=== PATIENT | female | born 1970 | race Caucasian/White ===

== ENCOUNTER 2024-03-02 08:15 | Outpatient (REF) | payer OTHER, SELFPAY | END 2024-03-02 08:16 | disposition home or self-care (01) | LOC: HO.SH 08:15 | PROVIDERS: PCP Internal Medicine; Visit Provider Internal Medicine | DX: H93.293 Other abnormal auditory perceptions, bilateral (principal) | CPT/HCPCS: 92557 ==

== ENCOUNTER 2025-07-29 08:05 | Outpatient (AMB) | payer OTHER, SELFPAY ==
--- NOTE | 2025-07-29 08:08 | A.OFFVIS_ITS ---
Intake Visit Reasons: 1 yr Allergies ibuprofen (From MOTRIN) Allergy (Unknown, Unverified 08/07/20 18:52) STOMACH UPSET sensitive to Motrin Adverse Reaction (Unknown, Uncoded 05/30/18 00:00) nausea and vomiting Medication List - Last Reconciled 07/29/25 by Sheeba Dunn MD azelastine 0.05% 1 drp ophthalmic (eye) BID cholecalciferol (vitamin D3) 50 mcg PO DAILY clonazepam (Klonopin) 1 mg PO BID PRN duloxetine (Cymbalta) 60 mg PO BID eszopiclone (Lunesta) 2 mg PO BEDTIME fezolinetant 45 mg PO DAILY gabapentin 300 mg PO TID omeprazole 40 mg PO DAILY sumatriptan succinate (Imitrex) 100 mg orally once a day as needed; 30 days triamcinolone acetonide 0.1% 1 appl topical DAILY HPI Comments Details: 54 years old woman with obesity, urinary incontinence, chronic migraine, anxiety disorder and 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 She is presenting with chronic headache and medication management concerns. Her headaches occur weekly, usually lasting from one day to the next, affecting her head and eyes. She experiences insomnia and depression. The patient has been taking clonazepam, duloxetine, and vitamin D, and has recently stopped using Ambien. She describes a mood affected by life events, including the loss of her mother and absence of a partner. Review of Systems Const Details: - Head: Reports weekly headaches with duration extending from one day to the next. - Eyes: Reports pain associated with headaches. - Insomnia: Reports issues with sleep, mentioning no longer using Ambien. - Mood: Reports feeling down, especially in the context of menopause, and significant life events. - Musculoskeletal: Reports back pain. - Social: Reports significant figures as children; denied having a partner for the last ten years. Physical Exam Neuro Other: Mental Status: Alert and oriented to person, place, and time. Normal attention. Normal spontaneous speech, fluency, and comprehension. No obvious issues with mood and memory. Affect is appropriate. Cranial Nerves: CN II: Visual hernandez full to confrontation, visual acuity intact. CN III, IV, : Pupils equal, round, reactive to light and accommodation. Extraocular movements are normal. CN V: Facial sensation is normal. CN VII: Facial movements symmetrical. CN VIII: Hearing intact to bedside conversation is normal. CN IX, X: Palate elevates symmetrically. CN XI: Shoulder shrug and head turn symmetrical. CN XII: Tongue midline without atrophy or fasciculations. Coordination: [id number] and [id number] testing normal. No dysmetria. Gait and Station: No obvious gait abnormality. No ataxia or instability. Extrapyramidal: Full facial expressions and blinking. No rigidity. Movements are appropriate with no tremor or abnormality. Speech: Normal; no dysarthria or tremor. Assessment & Plan Assessment & Plan (1) Migraine with aura, not intractable, without status migrainosus: Comment: Meds tried for Migraine: Topamax, Propranolol, Verapamil, Amitryptiline, CT head w/o cont at [facility] in 2009 and 2013: WNL EEG in office in 2013: WNL. EEG in office in 2009: ?bifrontal sharps MRI brain at [facility] in Dec 2014 WO: multiple b/l WM lesions, ?demyelinating disease EP screen at office in 2014: OK but SASCHA not done, she could not tolerate CSF analysis at [facility] [place] in 2014: WBC 1, RBCs 0, Glu 61, Pro 53.6, IgG ind: normal, OCBs: no bands, Gram stain and C/S: OK Labs at [facility] [place] in 2014: Lyme neg, RPR neg, IF neg, DAMIEN neg, CPR normal, ESR 12. MRI LS spine at [facility] in Feb 2015: no sig pathology noted. . Code(s): G43.109 - Migraine with aura, not intractable, without status migrainosus Category: Medical Plan Impression: a: Migraine w/o aura b: Chronic depression/anxiety c: ASHANTI on CPAP Rec: a: Sumatriptan 100mg one a day as needed Medications: Refilled sumatriptan succinate (Imitrex) 100 mg orally once a day as needed; 10 tabs 5RF 30 days Coding Level of Care Code Est Pt Level 4 (21180) Diagnoses Migraine with aura, not intractable, without status migrainosus G43.109
--- OUTSIDE RECORDS SUMMARY | 2025-07-29 08:42 | XMS_ITS | Clinical Summary ---
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 differential (05/16/2025 10:01 AM EDT) [facility] Signature WBC 6.5 4.8 - 10.8 K/mcL LAB HEMETOLOGY METHOD 05/16/2025 1:00 PM [facility] RBC 4.60 3.80 - 4.80 M/mcL LAB HEMETOLOGY METHOD 05/16/2025 1:00 PM [facility] Hemoglobin 13.4 11.5 - 16.0 g/dL LAB HEMETOLOGY METHOD 05/16/2025 1:00 PM [facility] Hematocrit 42.4 35.0 - 47.0 % LAB HEMETOLOGY METHOD 05/16/2025 1:00 PM [facility] MCV 91.6 79.0 - 98.0 FL LAB HEMETOLOGY METHOD 05/16/2025 1:00 PM [facility] MCH 28.9 27.0 - 32.0 pcg LAB HEMETOLOGY METHOD 05/16/2025 1:00 PM [facility] MCHC 31.6(L) 32.0 - 37.0 g/dL LAB HEMETOLOGY METHOD 05/16/2025 1:00 PM [facility] RDW 14.1 11.0 - 15.0 % LAB HEMETOLOGY METHOD 05/16/2025 1:00 PM [facility] Platelets 345 130 - 400 K/mcL LAB HEMETOLOGY METHOD 05/16/2025 1:00 PM [facility] MPV 11.6(H) 7.0 - 11.0 FL LAB HEMETOLOGY METHOD 05/16/2025 1:00 PM [facility] NRBC 0.0 <1.0 % LAB HEMETOLOGY METHOD 05/16/2025 1:00 PM [facility] NRBC Absolute 0.00 <0.10 K/mcL LAB HEMETOLOGY METHOD 05/16/2025 1:00 PM [facility] Neutrophils Relative 52.5 % LAB HEMETOLOGY METHOD 05/16/2025 1:00 PM [facility] Lymphocytes Relative 36.9 % LAB HEMETOLOGY METHOD 05/16/2025 1:00 PM [facility] Monocytes Relative 7.3 % LAB HEMETOLOGY METHOD 05/16/2025 1:00 PM [facility] Eosinophils Relative 2.5 % LAB HEMETOLOGY METHOD 05/16/2025 1:00 PM [facility] Basophils Relative 0.5 % LAB HEMETOLOGY METHOD 05/16/2025 1:00 PM [facility] Immature Granulocytes Relative 0.3 % LAB HEMETOLOGY METHOD 05/16/2025 1:00 PM [facility] Neutrophils Absolute 3.40 1.50 - 7.00 K/mcL LAB HEMETOLOGY METHOD 05/16/2025 1:00 PM [facility] Lymphocytes Absolute 2.39 1.00 - 5.00 K/mcL LAB HEMETOLOGY METHOD 05/16/2025 1:00 PM [facility] Monocytes Absolute 0.47 0.20 - 1.00 K/mcL LAB HEMETOLOGY METHOD 05/16/2025 1:00 PM [facility] Eosinophils Absolute 0.16 0.00 - 0.50 K/mcL LAB HEMETOLOGY METHOD 05/16/2025 1:00 PM [facility] Basophils Absolute 0.03 0.00 - 0.20 K/mcL LAB HEMETOLOGY METHOD 05/16/2025 1:00 PM [facility] Immature Granulocytes Absolute 0.02 0.00 - 0.03 K/mcL LAB HEMETOLOGY METHOD 05/16/2025 1:00 PM [facility] Blood Venous blood specimen / Unknown Venipuncture / Unknown 05/16/2025 10:01 AM EDT 05/16/2025 10:01 AM EDT Piyush Knapp MD LAB BLOOD ORDERA BLES Final Result Performing Organization Address City/[facility]/ZIP Co de Phone Number [facility] [address] [place] [address], [place] [phone] * Alanine aminotransferase (05/16/2025 10:01 AM EDT) Only the most recent of2 resultswithin the time period is included. ALT (SGPT) 23 10 - 60 unit/L LAB CHEMISTRY METHOD 05/16/2025 2:15 PM EDT [facility] Blood Venous blood specimen / Unknown Venipuncture / Unknown 05/16/2025 10:01 AM EDT 05/16/2025 10:01 AM EDT Brittney Morfin MD LAB BLOOD ORDERABLES Final Result Performing Organization Address [facility] Co de Phone Number [facility] [address] [place] [address], * Aspartate aminotransferase (05/16/2025 10:01 AM EDT) Only the most recent of2 resultswithin the time period is included. AST (SGOT) 15 10 - 42 unit/L LAB CHEMISTRY METHOD 05/16/2025 2:15 PM EDT [facility] Blood Venous blood specimen / Unknown Venipuncture / Unknown 05/16/2025 10:01 AM EDT 05/16/2025 10:01 AM EDT us Brittney Morfin MD LAB BLOOD ORDERABLES Final Result Performing Organization Address City/[facility]/ZIP Co de Phone Number [facility] [address] [place] [address], [place] [phone] * Magnesium (05/16/2025 10:01 AM EDT) [facility] Magnesium 2.4 1.9 - 2.6 mg/dL LAB CHEMISTRY METHOD 05/16/2025 1:35 PM EDT [facility] Blood Venous blood specimen / Unknown Venipuncture / Unknown 05/16/2025 10:01 AM EDT 05/16/2025 10:01 AM EDT Piyush Knapp MD LAB BLOOD ORDERA BLES Final Result Performing Organization Address [facility]/ZIP Co de Phone Number [facility] [address] [place] [address], [place] [phone] * Vitamin B12 (05/16/2025 10:01 AM EDT) [facility] Vitamin B-12 406 250 - 900 pcg/mL LAB CHEMISTRY METHOD 05/16/2025 2:15 PM EDT [facility] Blood Venous blood specimen / Unknown Venipuncture / Unknown 05/16/2025 10:01 AM EDT 05/16/2025 10:01 AM EDT Piyush Knapp MD LAB BLOOD ORDERA BLES Final Result [facility] [address] [place] [address], [place] [phone] * Basic metabolic panel (05/16/2025 10:01 AM EDT) [facility] Sodium 139 133 - 145 mmol/L LAB CHEMISTRY METHOD 05/16/2025 2:15 PM EDT [facility] Potassium 4.1 3.5 - 5.5 mmol/L LAB CHEMISTRY METHOD 05/16/2025 2:15 PM EDT [facility] Chloride 105 96 - 110 mmol/L LAB CHEMISTRY METHOD 05/16/2025 2:15 PM T [facility] CO2 26 21 - 32 mmol/L LAB CHEMISTRY METHOD 05/16/2025 2:15 PM [facility] Anion Gap 8 3 - 11 LAB CHEMISTRY METHOD 05/16/2025 2:15 PM T [facility] Glucose 98 70 - 100 mg/dL LAB CHEMISTRY METHOD 05/16/2025 2:15 PM [facility] BUN 17 5 - 25 mg/dL LAB CHEMISTRY METHOD 05/16/2025 2:15 PM [facility] Creatinine 0.94 0.50 - 1.10 mg/dL LAB CHEMISTRY METHOD 05/16/2025 2:15 PM [facility] eGFR 72 >=60 mL/min/1. 73m2 LAB CHEMISTRY METHOD 05/16/2025 2:15 PM T [facility] Comment:Calculation based on the Chronic Kidney Disease Epidemiology Collaboration (CKD-EPI) equation refit without adjustment for race. BUN/Creatinine Ratio 18.1 LAB CHEMISTRY METHOD 05/16/2025 2:15 PM [facility] Calcium 9.5 8.5 - 10.5 mg/dL LAB CHEMISTRY METHOD 05/16/2025 2:15 PM [facility] Blood Venous blood specimen / Unknown Venipuncture / Unknown 05/16/2025 10:01 AM EDT 05/16/2025 10:01 AM EDT us Piyush Knapp MD LAB BLOOD ORDERA BLES Final Result [facility] [address] [place] [address], * Culture urine (05/16/2025 9:33 AM EDT) Only the most recent of2 resultswithin the time period is included. Culture, Urine No growth 05/17/2025 10:47 AM EDT [facility] Urine First stream urine specimen / Unknown Non-blood Collection / Unknown 05/16/2025 9:33 AM EDT 05/16/2025 9:33 AM EDT Piyush Knapp MD LAB MICROBIOLOGY - GENERAL ORDERABLES Final Result [facility] [address] [place] [address], [place] [phone] * (ABNORMAL) POC Urine Auto W/O Micro (04/29/2025 2:05 PM EDT) Pathologist [facility] Leukocytes UA POC Positive(A) Negative Nitrite UA POC Positive(A) Negative Urobilinogen UA POC Negative Negative Protein UA POC Negative Negative PH UA POC 6.0 5.0 - 9.0 Blood UA POC Positive(A) Negative, Trace Specific [place] UA POC 1.005 1.001 - 1.035 Ketones UA POC Negative Negative Bilirubin UA POC Negative Negative Glucose UA POC Normal Normal, Trace Urine Urine specimen obtained by clean catch procedure / Unknown 04/29/2025 2:05 PM EDT Brittney Morfin MD POINT OF CARE TEST ENTER/ED IT ORDERABLES Final Result * MG Mammo Digital Screening w Maxi bilat (04/09/2025 9:52 AM EDT) Anatomical Region Laterality Modality Breast Bilateral Mammography 04/09/2025 5:27 PM EDT Impressions 04/09/2025 5:29 PM EDT No mammographic evidence of malignancy. BREAST DENSITY: B - There are scattered areas of fibroglandular density. BI-RADS CATEGORY: 1 - NEGATIVE RECOMMENDATION: Screening bilateral mammogram is recommended in 1 year. MAMMO LOCATION: [facility], [address], [place], [address], . -------- FINAL REPORT -------- Dictated By: Barbara Kilpatrick Dictated Date: 04/09/2025 17:27 ET Assigned Physician: Barbara Kilpatrick Reviewed and Electronically Signed By: Barbara Kilpatrick Signed Date: 04/09/2025 17:29 ET Workstation ID: [id number] Transcribed By: Self Edit Transcribed Date: 04/09/2025 17:27 ET Narrative 04/09/2025 5:29 PM EDT EXAM: Screening Mammogram CLINICAL: 54 years old, Female, routine annual exam. History of a benign left core biopsy on 01/04/2017. COMPARISON: 02/15/2024 and as far back as 09/17/2020 TECHNIQUE: Bilateral MLO and CC views were obtained digitally with 3-D mammogram (digital breast tomosynthesis). Computer-aided detection was utilized in evaluation of this exam (CAD). FINDINGS: No new suspicious mass, architectural distortion, or suspicious calcifications. Procedure Note Barbara Kilpatrick MD - 04/09/2025 EXAM: Screening Mammogram CLINICAL: 54 years old, Female, routine annual exam. History of a benignleft core biopsy on 01/04/2017. COMPARISON: 02/15/2024 and as far back as 09/17/2020 TECHNIQUE: Bilateral MLO and CC views were obtained digitally with 3-Dmammogram (digital breast tomosynthesis). Computer-aided detection wasutilized in evaluation of this exam (CAD). FINDINGS: No new suspicious mass, architectural distortion, or suspiciouscalcifications. IMPRESSION: No mammographic evidence of malignancy. BREAST DENSITY: B - There are scattered areas of fibroglandular density. BI-RADS CATEGORY: 1 - NEGATIVE RECOMMENDATION: Screening bilateral mammogram is recommended in 1 year. MAMMO LOCATION: [facility], [address] [place] [address], [phone], . -------- FINAL REPORT -------- Dictated By: Barbara Kilpatrick Dictated Date: 04/09/2025 17:27 ET Assigned Physician: Barbara Kilpatrick Reviewed and Electronically Signed By: Barbara Kilpatrick Signed Date: 04/09/2025 17:29 ET Workstation ID: [id number] Transcribed By: Self Edit Transcribed Date: 04/09/2025 17:27 ET Piyush Knapp MD IMG BI PROCEDURE S Final Result * Depression Screening (05/14/2024) Pathologist [facility] Depression Screening Abstracted Historical Provider HEALTH MAINTENANCE Final Result * Cervical Cancer Screening: HPV (08/16/2023) [facility] Cervical Cancer Screening: HPV Abstracted ,negative Historical Provider HEALTH MAINTENANCE Final Result * Colonoscopy (07/08/2021) [facility] Colonoscopy No interpreta tion,abstr acted Anatomical Region Laterality Modality Other Historical Provider HEALTH MAINTENANCE Final Result * Hepatitis C Screening (08/11/2018) [facility] Hepatitis C Screening Abstracted Historical Provider HEALTH MAINTENANCE Final Result * HIV Screening (02/01/2006) [facility] HIV Screening Abstracted Historical Provider HEALTH MAINTENANCE Final Result from Last 3 Months or Most Recently Relevant to Health Maintenance Insurance [facility] [employer] Care Teams [employer] Relationship Specialty Start Date End Date Ogundipe, Oyinkansola Oyenike, MD [address] [place] [phone] PCP - General 09/08/23
--- OUTSIDE RECORDS SUMMARY | 2025-07-29 08:42 | XMS_ITS | Clinical Summary ---
Author Organization [facility] Address [address] [place], [place] [id number] Phone Care Team Providers Care Marketing Development Manager Name Role Phone MattTiki Garza Trudy DO Primary Car e Provider Social History Tobacco Use Types Packs/Day Years Used Date Smoking Tobacco: Never Assessed Education Answer Date Recorded Are you interested in more education? Not on olena e 03/18/2023 Are you concerned about learning? Not on file 03/18/2023 No 03/18/2023 No 03/18/2023 Digital Access Answer Date Recorded No 04/16/2023 No 04/16/2023 No 04/16/2023 Reliable internet access at home? Not on file 04/16/2023 Device with a working camera? Not on file Comments Unknown Sex and Gender Information Value Date Recorded Sex Assigned at Not on file Legal Sex Female 9:36 PM EDT Gender Identity Not on file Sexual Orientation Not on file Plan of Treatment Health Maintenance Due Date Last Done Comments Adult Td,Tdap Booster 1969 LIPID PANEL 1969 DEPRESSION SCREENING 1981 SMOKING Hx and SMOKELESS TOB ACCO SCREENING 1982 HEPATITIS C SCREENING 1987 HIV ONE-TIME SCREENING (18-6 5 YEARS) 1987 PAP SMEAR 1990 MAMMOGRAM 2009 COLOGUARD 2014 COLONOSCOPY 2014 COLORECTAL CANCER SCREENING 2014 FIT TEST 2014 FOBT 2014 SIGMOIDOSCOPY 2014 VIRTUAL COLONOSCOPY 2014 PNEUMOCOCCAL VACCINES (50+ y ears) (1 of 1 - PCV) 2019 ZOSTER VACCINES (1 of 2) 2019 INFLUENZA VACCINE (#1) 2025 COVID-19 VACCINE (2023-2 5 season) 2025 HEPATITIS A VACCINES Aged Out No long er eligible based on patient's age to complete this topic HIB VACCINES Aged Out No longer eligi ble based on patient's age to complete this topic MENINGOCOCCAL VACCINES (ACWY) Aged Out No longer eligible based on patient's age to complete this topic MENINGOCOCCAL VACCINES (B) Aged Out N o longer eligible based on patient's age to complete this topic Medical Devices Not on file Care Teams Marketing Development Manager Relationship Specialty Start Date End Date Tiki Merchant DO PCP - General 09/06/17 Additional Source Comments The information contained in this document represents components of the legal health record. It is not the complete legal health record.[facility]
--- OUTSIDE RECORDS SUMMARY | 2025-07-29 08:43 | XMS_ITS ---
[facility] Name [facility] Organization Unknown Care Team Organization Name Specialty Phone Email Start Date End Da te [facility]AA [facility] 09/28/2022 4
== END 2025-07-29 08:20 | disposition home or self-care (01) ==
LOC: HO.HSM 08:05
PROVIDERS: PCP Family Medicine; Referring Provider Internal Medicine; Visit Provider Psychiatry & Neurology Neurology
DX: G43.109 Migraine with aura, not intractable, without status migrainosus (principal)
CPT/HCPCS: 99214

== ENCOUNTER → 2025-07-29 08:05 | Outpatient (BNVA) | payer OTHER, SELFPAY | PROVIDERS: PCP Family Medicine; Referring Provider Internal Medicine; Visit Provider Psychiatry & Neurology Neurology | DX: G43.109 Migraine with aura, not intractable, without status migrainosus (principal); F33.2 Major depressive disorder, recurrent severe without psychotic features; F41.9 Anxiety disorder, unspecified; G47.33 Obstructive sleep apnea (adult) (pediatric); Z99.89 Dependence on other enabling machines and devices | CPT/HCPCS: 99212 ==

== ENCOUNTER 2025-09-06 09:29 | Outpatient (AMB) | payer OTHER, SELFPAY ==
--- OUTSIDE RECORDS SUMMARY | 2025-09-03 14:30 | XMS_ITS | Encounter Summary ---
Author Organization [employer] Address [address] [place] [address] Care Team Providers Care Financial Aid Director Name Role Phone Piyush Knapp MD Primary Care Pr ovid Reason for Referral * Imaging (Routine) - Pending Review Specialty Diagnoses / Procedures Referred By Contac t Referred To Contact Radiology Diagnoses Syncope and collapse Procedures CT Cervical Spine wo Contrast Tamara Torrez PA [address] [place] [address] Phone: tel: fax: [address] Phone: tel: Referral ID Status Reason Start Date Expiration Date V isits Requested Visits Authorized [id number] Pending Review 09/03/2025 09/03/2026 1 1 * Imaging (Routine) - Authorized Specialty Diagnoses / Procedures Referred By Contac t Referred To Contact Radiology Diagnoses Syncope and collapse Procedures CT Head wo Contrast Tamara Torrez PA [address] [place] [address] Phone: tel: fax: CT Scan [address] [address] Phone: tel: fax: Referral ID Status Reason Start Date Expiration Date V isits Requested Visits Authorized [id number] Authorized 09/03/2025 11/03/2025 1 1 * Imaging (Routine) - Pending Review Specialty Diagnoses / Procedures Referred By Contac t Referred To Contact Cardiology Diagnoses Syncope and collapse Other chest pain Procedures Stress echocardiogram (TTE) exercise with contrast, bubble, strain, and 3D PRN order panel NV ECHOCARDIOGRAPHY TRANSTHORACIC 2D REST & STRESS W INTERPRETATION/REPORT NV ECHOCARDIOGRAPHY TRANSTHORACIC 2D REST & STRESS W/M-MODE NV DOPPLER ECHO COMPLETE NV ECHOCARDIOGRAPHY DOPPLER COLOR FLOW MAPPING NV CV TMST/BIKE MAX/SUBMAX CONTINUOUS ECG MON/PHARM STRESS SUPVSR ONLY NV TEST STRESS CARDIOVASCULAR TRACING ONLY NV CV STRESS TEST/BIKE CONT ECG MON/PHARM STRESS INTERP & REPORT ONLY Tamara Torrez PA [address] [place] [address] Phone: tel: fax: [facility] Referral ID Status Reason Start Date Expiration Date V isits Requested Visits Authorized [id number] Pending Review 09/03/2025 09/03/2026 1 1 * Imaging (Routine) - Pending Review Specialty Diagnoses / Procedures Referred By Contac t Referred To Contact Cardiology Diagnoses Syncope and collapse Other chest pain Procedures Transthoracic echocardiogram (TTE) complete with PRN contrast, bubble, strain, and 3D order panel NV TTE W 2D IMAGE COMPLETE W DOPPLER ECHO & COLOR FLOW DOPPLER ECHO NV CHIQUI 2D COMPLETE W/CONTRAST OR W & WO CONTRAST WITH DOPPLER Tamara Torrez PA [address] [place] [address] Phone: tel: fax: [facility] Referral ID Status Reason Start Date Expiration Date V isits Requested Visits Authorized [id number] Pending Review 09/03/2025 09/03/2026 1 1 * Cardiac Stress Testing (Routine) - Pending Review Specialty Diagnoses / Procedures Referred By Ranjeet joyce Referred To Contact Cardiology Diagnoses Syncope and collapse Other chest pain Procedures Cardiac holter monitor (<= 48 hours) NV ECG EXTERNAL UP TO 48 HOURS RECORDING NV ECG EXTERNAL < 48 HOURS CONTINUOUS RECORDING/STORAGE R&I BY A PHYS/QHP NV EXTERNAL ECG UP TO 48 HRS INCL RECORDING SCANNING ANLYS W REPORT Tamara Torrez PA [address] [place] [address] Phone: tel: fax: [facility] Referral ID Status Reason Start Date Expiration Date V isits Requested Visits Authorized [id number] Pending Review 09/03/2025 09/03/2026 1 1 * Consultation (Urgent) - Authorized Specialty Diagnoses / Procedures Referred By Ranjeet joyce Referred To Contact Cardiology Diagnoses Syncope and collapse Other chest pain Tamara Torrez PA [address] [place] [address] Phone: tel: fax: [facility] [address] [facility] [address] [place] [address] Phone: tel: fax: Referral ID Status Reason Start Date Expiration Date Visits Requested Visits Authorized [id number] Authorized Specialty Services Required 09/03/2026 1 1 Reason for Visit * Reason Comments Knee Pain Encounter Details Date Type Department Care Team (Late st Contact Info) Description 09/03/2025 2:30 PM EDT Office Visit Adult Medicine [address] [phone] Tamara Torrez PA [address] [place] [address] Syncope and collapse (Primary Dx); Fall, initial encounter; Other chest pain; Acute pain of right knee; Acute right ankle pain; Left leg pain; History of epilepsy; Elevated BP without diagnosis of hypertension Social History Tobacco Use Types Packs/Day Years [...] got money to buy more. Sometimes true 024 Within the past 12 months th e food we bought just didn't last and we didn't have money to get more. Unable to respond 10/22 Dependent Care Answer Date Recorded Do you need help finding or paying for care for your loved ones. For example, home child care provider or elderly care for an older adult? [...] Date Recorded What is your living situation? Unrecognized valu e 11/13/2024 Comments No Sex and Gender Information Value Date Recorded Sex Assigned at Not on file Legal Sex Female 1:10 PM EST Gender Identity Not on file Sexual Orientation Not on file documented as of this encounter Last Filed Vital Signs Vital Sign Reading Time Taken Comments Blood Pressure 124/88 09/03/2025 3:07 PM EDT Pulse 74 09/03/2025 2:12 PM EDT Temperature 36.7 C (98 F) 09/03/2025 2:12 PM EDT Respiratory Rate 15 09/03/2025 2:12 PM EDT Oxygen Saturation 98% 09/03/2025 2:12 PM EDT Inhaled Oxygen Concentration - - Weight 101 kg (222 lb 9.6 oz) 09/03/2025 2:12 PM EDT Height 157.5 cm (5' 2 ) 09/03/2025 2:12 PM EDT Body Mass Index 40.71 09/03/2025 2:12 PM EDT documented in this encounter Progress Notes * TYRONE Gracia - 09/03/2025 2:30 PM EDT CHIEF COMPLAINT: Knee Pain IDENTIFIER: Shannan Cordero is a 54 y.o. old female. HPI: 54 year old female presents to office for evaluation of right knee pain Patient states on Tuesday she was in [place] with family (her grandson graduated from the [employer] she drove down to [place] with her daughter for the graduation). She states she was bending over to put ice in the cooler and the next thing she recalls is being on the ground. She statesher fall was witnessed by her daughter. She reports history of syncope and epilepsy (follows with Neurology, Dr. Dunn, previously on Topamax but is not taking currently). She denies head injury She reports pain her right knee, right ankle and left lower leg, states she has bruise over left lower leg On further questioning, patient states she had episode of chest pain a few days prior to incident on Tuesday. She denies recurrence of chest pain or syncope. Denies symptoms in office today She states she was worked up for syncope in the past through [facility]. She states she has not had syncopal episode in ~5 years. She states she recalls having these issues throughout her entire life She had 30 day loop monitor through Cardiology 04/2019-05/2019 but only wore the monitor for 3 days per the report, overall showed sinus rhythm without supraventricular ectopy. She had ETT 06/2019 that showed no evidence of ischemia BP today 140/93. No history of HTN, repeat BP end of visit 124/88 She denies previous history of elevated BP, she attributes BP to pain today ROS: GENERAL: No malaise or fever HEENT: No changes in hearing or vision RESPIRATORY: No cough, wheezing or shortness of breath CARDIOVASCULAR: No chest pain GI: No abdominal pain, diarrhea, constipation MUSCULOSKELETAL: SEE HPI NEURO: No persistent headache, numbness All other systems reviewed and negative. PAST MEDICAL HISTORY: Patient Active Problem List Diagnosis Date Noted History of epilepsy 09/03/2025 Chronic midline low back pain without sciatica 05/16/2025 Osteoarthritis of lumbar spine with myelopathy 05/16/2025 Anxiety and depression 05/16/2025 History of recurrent UTIs 05/16/2025 Vasomotor symptoms due to menopause 05/06/2025 Irritant contact dermatitis due to urinary incontinence 04/29/2025 Amenorrhea 08/16/2023 Urinary incontinence, mixed 08/16/2023 Obesity (BMI 30-39.9) 09/25/2021 ASHANTI (obstructive sleep apnea) 10/20/2019 Primary osteoarthritis of both knees 07/19/2018 B12 deficiency 04/15/2016 Vitamin D deficiency 05/12/2014 Fibromyalgia 01/10/2014 Occipital neuralgia 08/01/2013 IBS (irritable bowel syndrome) 03/08/2013 Migraine 03/02/2012 GERD (gastroesophageal reflux disease) 07/19/2008 Insomnia 12/07/2007 Kidney stones 12/07/2007 Scoliosis 12/07/2007 Ureteral reflux 12/07/2007 ACTIVE MEDICATIONS: Current Outpatient Medications Medication Instructions azelastine (OPTIVAR) 0.05 % ophthalmic solution 1 drop, Both Eyes, 2 times daily cholecalciferol (VITAMIN D-3) 50 mcg (2,000 unit) tablet TOME 1 TABLETA POR VIA ORAL [place] clonazePAM (KlonoPIN) 1 mg tablet Take 1 mg by mouth 2 times daily as needed. DULoxetine (CYMBALTA) [address] capsule Take 60 mg by mouth 2 times daily. 60 mg BID eszopiclone (LUNESTA) 2 mg, Nightly gabapentin (NEURONTIN) 300 mg capsule TOME 1 CAPSULA POR VIA ORAL [place] VECES AL MARY LOU omeprazole (PRILOSEC) 40 mg, oral, Daily, Do not crush or chew. SUMAtriptan (IMITREX) 100 mg tablet triamcinolone (KENALOG) 0.1 % ointment Apply small amounts to affected area every 12 hours. Do not use for more than 14 days at a time ALLERGIES: Allergies[1] PHYSICAL EXAM: Blood pressure 124/88, pulse 74, temperature 36.7 ??C (98 ??F), temperature source Oral, resp. rate15, height 1.575 m (62 ), weight 101 kg (222 lb 9.6 oz), SpO2 98%. Body mass index is 40.71 kg/m??. APPEARANCE: Alert and in no acute distress EYES: Conjunctiva and sclera normal. HEART: RRR with normal S1 and S2 LUNG: clear to auscultation, no wheezing, rales, or rhonchi EXTREMITIES: Extremities warm and well perfused without clubbing, cyanosis, or edema. Patient ambulatory. Bruise and swelling over anterior proximal left lower leg NEURO: Awake, alert and oriented x 3, cranial nerves intact LABS/IMAGING: Reviewed IMPRESSION: 1. Syncope and collapse 2. Fall, initial encounter 3. Other chest pain 4. Acute pain of right knee 5. Acute right ankle pain 6. Left leg pain 7. History of epilepsy 8. Elevated BP without diagnosis of hypertension PLAN: Patient in office today for evaluation of right knee pain following a fall which turns out to have been a syncopal episode as patient states she does not recall falling/recall event. Fall was witnessed, no reported head injury and no reported headache symptoms today. Will obtain x-rays of the rightknee, right ankle and left lower leg. EKG obtained in office today NSR 70bpm, T-wave inversions andflattening in lead V3 and V5 when compared to EKG from 2020. Will order lab work, order CT head, CTcervical spine, stress test, holter monitor, ECHO. Referral placed to Cardiology. Advised to contact neurologist to inform of recent event as well. Signs and symptoms that would warrant emergent evaluation discussed BP elevated today, possible secondary to knee pain, ankle pain from fall. Patient to follow-up as scheduled in early September with PCP for monitoring Patient verbalized understanding and is in agreement with plan ADDITIONAL ORDERS: Orders Placed This Encounter Procedures XR Knee 4+ Views Right XR Ankle 3+ Views Right XR Tibia Fibula [address] Head wo Contrast CT Cervical Spine wo Contrast CBC and differential Comprehensive metabolic panel Thyroid stimulating hormone with reflex to free t4 and free t3 Magnesium Ambulatory referral to Cardiology Cardiac holter monitor (<= 48 hours) ECG 12 lead Tracing Only Transthoracic echocardiogram (TTE) complete with PRN contrast, bubble, strain, and 3D order panel Stress echocardiogram (TTE) exercise with contrast, bubble, strain, and 3D PRN order panel AMB REFERRAL TO CARDIOLOGY CT HEAD WO CONTRAST CT CERVICAL SPINE WO CONTRAST TYRONE Gracia on 09/03/2025 at 3:29 PM EDT Today's documentation was made using voice recognition software.This note may contain grammatical errors secondary to this software. [1] No Known Allergies documented in this encounter Plan of Treatment Upcoming Encounters Date Type Department Care Team (Late st Contact Info) Description 09/23/2025 8:30 AM EST Office Visit Adult Medicine [address] [phone] Piyush Knapp MD [address] [place] [address] Scheduled Orders Name Type Priority Associated Diagnoses Order Schedule Cardiac holter monitor (<= 48 hours) Cardiac Services Routine Syncope and collapse Other chest pain 1 Occurrences starting 09/03/2025 until 09/03/2026 Transthoracic echocardiogram (TTE) complete with PRN contrast, bubble, strain, and 3D order panel Echocardiography Routine Syncope and collapse Other chest pain 1 Occurrences starting 09/03/2025 until 09/03/2026 Stress echocardiogram (TTE) exercise with contrast, bubble, strain, and 3D PRN order panel Stress Echocardiography Routine Syncope and collapse Other chest pain 1 Occurrences starting 09/03/2025 until 09/03/2026 CT Head wo Contrast Imaging Routine Syncope and collapse Expected: 09/03/2025, Expires: 09/03/2026 CT Cervical Spine wo Contrast Imaging Routine Syncope and collapse Expected: 09/03/2025, Expires: 09/03/2026 Scheduled Referrals Name Type Priority Associated Diagnoses Order Schedule Ambulatory referral to Cardiology Outpatient Referral Routine Syncope and collapse Other chest pain 1 Occurrences starting 09/03/2025 until 09/03/2026 documented as of this encounter Procedures Procedure Name Priority Date/Time Associated Diagnosis Comments ECG 12-LEAD TRACING ONLY Routine 09/03/2025 3:30 PM EDT Syncope and collapse documented in this encounter Results * ECG 12 lead Tracing Only (09/03/2025 3:30 PM EDT) Tamara HANSEN ECG ORDERABLES Final Result * XR Ankle 3+ Views Right (09/03/2025 3:29 PM EDT) Anatomical Region Laterality Modality Lower Extremities, Ankle Right Radiogr aphic Imaging 09/03/2025 4:14 PM EDT Impressions 09/03/2025 4:15 PM EDT Normal study. -------- FINAL REPORT -------- Dictated By: Laila No Dictated Date: 09/03/2025 16:14 ET Assigned Physician: Laila No Reviewed and Electronically Signed By: Laila No Signed Date: 09/03/2025 16:15 ET Workstation ID: [id number] Transcribed By: Self Edit Transcribed Date: 09/03/2025 16:14 ET Narrative 09/03/2025 4:15 PM EDT RIGHT ANKLE, 3 VIEWS HISTORY: Right ankle pain. Fall 09/01/2025. PRIORS: None. FINDINGS: No fracture, malalignment, or foreign body is seen. No soft tissue abnormality is seen. The ankle mortise appears normally aligned. Procedure Note Laila No MD - 09/03/2025 RIGHT ANKLE, 3 VIEWS HISTORY: Right ankle pain. Fall 09/01/2025. PRIORS: None. FINDINGS: No fracture, malalignment, or foreign body is seen. No soft tissueabnormality is seen. The ankle mortise appears normally aligned. IMPRESSION: Normal study. -------- FINAL REPORT -------- Dictated By: Laila No Dictated Date: 09/03/2025 16:14 ET Assigned Physician: Laila No Reviewed and Electronically Signed By: Laila No Signed Date: 09/03/2025 16:15 ET Workstation ID: [id number] Transcribed By: Self Edit Transcribed Date: 09/03/2025 16:14 ET Tamara HANSEN IMG XR PROCEDURES Final Resul t * XR Knee 4+ Views Right (09/03/2025 3:28 PM EDT) Anatomical Region Laterality Modality Lower Extremities, Knee Right Radiogra [facility] Imaging 09/03/2025 4:11 PM EDT Impressions 09/03/2025 4:13 PM EDT Mild osteoarthritis. No acute findings. -------- FINAL REPORT -------- Dictated By: Laila No Dictated Date: 09/03/2025 16:11 ET Assigned Physician: Laila No Reviewed and Electronically Signed By: Laila No Signed Date: 09/03/2025 16:13 ET Workstation ID: [id number] Transcribed By: Self Edit Transcribed Date: 09/03/2025 16:11 ET Narrative 09/03/2025 4:13 PM EDT RIGHT KNEE VIEWS: 6. HISTORY: Right knee pain. Fall 09/01/2025. . PRIOR: None . FINDINGS: There is no fracture or dislocation. There is mild spurring is spurring about all 3 compartments.. There is no knee joint effusion. There is no soft tissue abnormality. Procedure Note Laila No MD - 09/03/2025 RIGHT KNEE VIEWS: 6. HISTORY: Right knee pain. Fall 09/01/2025. . PRIOR: None . FINDINGS: There is no fracture or dislocation. There is mild spurring is spurring about all 3 compartments.. There is no knee joint effusion. There is no soft tissue abnormality. IMPRESSION: Mild osteoarthritis. No acute findings. -------- FINAL REPORT -------- Dictated By: Laila No Dictated Date: 09/03/2025 16:11 ET Assigned Physician: Laila No Reviewed and Electronically Signed By: Laila No Signed Date: 09/03/2025 16:13 ET Workstation ID: [id number] Transcribed By: Self Edit Transcribed Date: 09/03/2025 16:11 ET Tamara HANSEN IMG XR PROCEDURES Final Resul t * XR Tibia Fibula 2 Views Left (09/03/2025 3:28 PM EDT) Anatomical Region Laterality Modality Lower Extremities, Lower Leg Left Rad iographic Imaging 09/03/2025 4:13 PM EDT Impressions 09/03/2025 4:14 PM EDT No acute fracture. Soft tissue swelling. -------- FINAL REPORT -------- Dictated By: Laila No Dictated Date: 09/03/2025 16:13 ET Assigned Physician: Laila No Reviewed and Electronically Signed By: Laila No Signed Date: 09/03/2025 16:14 ET Workstation ID: [id number] Transcribed By: Self Edit Transcribed Date: 09/03/2025 16:13 ET Narrative 09/03/2025 4:14 PM EDT Left Tibia and Fibula-2 Views HISTORY: Fall 09/01/2025. Bruising anterior left lower leg. FINDINGS: There is no fracture or dislocation. There is degenerative spurring about the knee joint. There is mild soft tissue swelling overlying the anterior proximal tibia. Procedure Note Laila No MD - 09/03/2025 Left Tibia and Fibula-2 Views HISTORY: Fall 09/01/2025. Bruising anterior left lower leg. FINDINGS: There is no fracture or dislocation. There is degenerative spurring about the knee joint. There is mild soft tissue swelling overlying the anterior proximaltibia. IMPRESSION: No acute fracture. Soft tissue swelling. -------- FINAL REPORT -------- Dictated By: Laila No Dictated Date: 09/03/2025 16:13 ET Assigned Physician: Laila No Reviewed and Electronically Signed By: Laila No Signed Date: 09/03/2025 16:14 ET Workstation ID: [id number] Transcribed By: Self Edit Transcribed Date: 09/03/2025 16:13 ET us Tamara HANSEN IMG XR PROCEDURES Final Resul t * Magnesium (09/03/2025 3:08 PM EDT) Magnesium 2.3 1.9 - 2.6 mg/dL LAB CHEMISTRY METHOD 09/03/2025 7:07 PM EDT [facility] Blood Venous blood specimen / Unknown Venipuncture / Unknown 09/03/2025 3:08 PM EDT 09/03/2025 3:08 PM EDT us Tamara HANSEN LAB BLOOD ORDERABLES Final Re sult Performing Organization Address [facility]/ZIP Co de Phone Number [facility] [address] [place] [address], [place] [phone] * Thyroid stimulating hormone with reflex to free t4 and free t3 (09/03/2025 3:08 PM EDT) TSH 2.02 0.40 - 4.00 mcIU/mL LAB CHEMISTRY METHOD 09/03/2025 7:36 PM EDT [facility] Blood Venous blood specimen / Unknown Venipuncture / Unknown 09/03/2025 3:08 PM EDT 09/03/2025 3:08 PM EDT us Tamara HANSEN LAB BLOOD ORDERABLES Final Re sult [facility] [address] [place] [address], [place] [phone] * (ABNORMAL) Comprehensive metabolic panel (09/03/2025 3:08 PM EDT) Sodium 139 133 - 145 mmol/L LAB CHEMISTRY METHOD 09/03/2025 7:17 PM EDT [facility] Potassium 4.3 3.5 - 5.5 mmol/L LAB CHEMISTRY METHOD 09/03/2025 7:17 PM [facility] Chloride 106 96 - 110 mmol/L LAB CHEMISTRY METHOD 09/03/2025 7:17 PM [facility] CO2 30 21 - 32 mmol/L LAB CHEMISTRY METHOD 09/03/2025 7:17 PM [facility] Anion Gap 3 3 - 11 LAB CHEMISTRY METHOD 09/03/2025 7:17 PM [facility] Glucose 98 70 - 100 mg/dL LAB CHEMISTRY METHOD 09/03/2025 7:17 PM [facility] BUN 12 5 - 25 mg/dL LAB CHEMISTRY METHOD 09/03/2025 7:17 PM [facility] Creatinine 0.93 0.50 - 1.10 mg/dL LAB CHEMISTRY METHOD 09/03/2025 7:[facility] eGFR 73 >=60 mL/min/1. 73m2 LAB CHEMISTRY METHOD 09/03/2025 7:17 PM [facility] Comment:Calculation based on the Chronic Kidney Disease Epidemiology Collaboration (CKD-EPI) equation refit without adjustment for race. BUN/Creatinine Ratio 12.9 LAB CHEMISTRY METHOD 09/03/2025 7:17 PM [facility] Calcium 9.7 8.5 - 10.5 mg/dL LAB CHEMISTRY METHOD 09/03/2025 7:17 PM [facility] AST (SGOT) 40 10 - 42 unit/L LAB CHEMISTRY METHOD 09/03/2025 7:17 PM [facility] ALT (SGPT) 65(H) 10 - 60 unit/L LAB CHEMISTRY METHOD 09/03/2025 7:17 PM [facility] Alkaline Phosphatase 133(H) 42 - 121 unit/L LAB CHEMISTRY METHOD 09/03/2025 7:17 PM T [facility] Total Protein 7.0 6.0 - 8.0 g/dL LAB CHEMISTRY METHOD 09/03/2025 7:17 PM T [facility] Albumin 3.8 3.2 - 5.0 g/dL LAB CHEMISTRY METHOD 09/03/2025 7:17 PM [facility] Total Bilirubin 0.4 0.0 - 1.4 mg/dL LAB CHEMISTRY METHOD 09/03/2025 7:17 PM T [facility] Blood Venous blood specimen / Unknown Venipuncture / Unknown 09/03/2025 3:08 PM EDT 09/03/2025 3:08 PM EDT Tamara HANSEN LAB BLOOD ORDERABLES Final Re sult [facility] [address] [place] [address], documented in this encounter Visit Diagnoses Diagnosis Syncope and collapse- Primary Fall, initial encounter Other chest pain Acute pain of right knee Acute right ankle pain Left leg pain Pain in soft tissues of limb History of epilepsy Unspecified epilepsy without mention of intractable epilepsy Elevated BP without diagnosis of hypertension Fall, initial encounter Fall, initial encounter Fall, initial encounter documented in this encounter Discontinued Medications Medication Sig Discontinue Reason Start Date End Da te fezolinetant 45 mg tabletIndications:Vasomot or symptoms due to menopause Take 45 mg by mouth 1 (one) time each day. 05/06/2025 09/03/2025 documented as of this encounter Additional Health Concerns Assessment Noted Time PHQ-9 Depression Total Score: 11 025 2:03 AM EDT documented as of this encounter Care Teams Financial Aid Director Relationship Specialty Start Date End Date Piyush Knapp MD [address] [place] [phone] PCP - General 09/08/23 documented as of this encounter
--- OUTSIDE RECORDS SUMMARY | 2025-09-03 15:15 | XMS_ITS | Encounter Summary ---
Author Organization [employer] [address] Care Team Providers Care Crop Research Scientist Name Role Phone Piyush Knapp MD Primary Care Pr ovider Encounter Details Date Type Department Care Team (Latest Contact Info) Description 09/03/2025 3:15 PM EDT - 09/03/2025 11:59 PM EDT Hospital Encounter XRAY - [place] [address] [place] [address] Fall, initial encounter Discharge Disposition: Home or Self Care Social History Tobacco Use Types Packs/Day Years Used Date Smoking Tobacco: Never Smokeless Tobacco: Never Alcohol Use Standard Drinks/Week Comments No 0 [...] for your loved ones. For example, child study team director or elderly care for an older adult? [...] on file documented as of this encounter Medications at Time of Discharge azelastine (OPTIVAR) 0.05 % ophthalmic solution Administer 1 drop into both eyes 2 (two) times a day. 18 mL 11/30/2024 cholecalciferol (VITAMIN D-3) 50 mcg (2,000 unit) tablet TOME 1 TABLETA POR VIA ORAL TODOS [place] RAMOS 90 tablet 1 07/16/2025 clonazePAM (KlonoPIN) 1 mg tablet Take 1 mg by mouth 2 times daily as needed. DULoxetine (CYMBALTA) [address] capsule Take 60 mg by mouth 2 times daily. 60 mg BID eszopiclone (LUNESTA) 2 mg tablet Take 1 tablet (2 mg total) by mouth at bedtime. 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 Do not crush or chew. 90 capsule 1 05/16/2025 SUMAtriptan (IMITREX) 100 mg tablet 01/11/2021 triamcinolone (KENALOG) 0.1 % ointmentIndications :Irritant contact dermatitis due to urinary incontinence,Dermat itis Apply small amounts to affected area every 12 hours. Do not use for more than 14 days at a time 45 g 05/16/2025 documented as of this encounter Discharge Disposition Disposition Code Departure Means Destination Home or Self Care documented in this encounter Plan of Treatment Upcoming Encounters Date Type Department Care Team (Late st Contact Info) Description 09/23/2025 8:30 AM EST Office Visit Adult Medicine [address] [phone] Piyush Knapp MD [address] [place] [address] documented as of this encounter Procedures Procedure Name Priority Date/Time Associated Diagnosis Comments XR TIBIA FIBULA 2 VIEWS LEFT Routine 09/03/2025 3:28 PM EDT Fall, initial encounter documented in this encounter Results * XR Tibia Fibula 2 Views Left [...] Signed Date: 09/03/2025 16:14 ET Workstation ID: [id number] Transcribed By: Self Edit Transcribed Date: 09/03/2025 [...] Signed Date: 09/03/2025 16:14 ET Workstation ID: [id number] Transcribed By: Self Edit Transcribed Date: 09/03/2025 16:13 ET Tamara HANSEN IMG XR PROCEDURES Final Resul t documented in this encounter Visit Diagnoses Diagnosis Fall, initial encounter documented in this encounter Additional Health Concerns Assessment Noted Time PHQ-9 Depression Total Score: 11 06/01/2 025 2:03 AM EDT documented as of this encounter Care Teams Crop Research Scientist Relationship Specialty Start Date End Date Piyush Knapp MD [address] [place] [address] [phone] PCP - General 09/08/23 documented as of this encounter
--- OUTSIDE RECORDS SUMMARY | 2025-09-03 15:17 | XMS_ITS | Encounter Summary ---
Author Organization [employer] [place] [address] Care Team Providers Care Strategic Intelligence Officer Name Role Phone Piyush Knapp MD Primary Care Pr ovider Encounter Details Date Type Department Care Team (Latest Contact Info) Description 09/03/2025 3:17 PM EDT - 09/03/2025 11:59 PM EDT Hospital Encounter XRAY - [place] [address] [place] [address] Fall, initial encounter Discharge Disposition: Home or [...] care for your loved ones. For example, childhood teacher or elderly care for an older adult? [...] 8:30 AM EST Office Visit Adult Medicine [address] [phone] Piyush Knapp MD [address] [place] [address] documented as of this encounter Procedures Procedure Name Priority Date/Time Associated Diagnosis Comments XR ANKLE 3+ VIEWS RIGHT Routine 09/03/2025 3:29 PM EDT Fall, initial encounter documented in this encounter Results * XR Ankle 3+ Views Right (09/03/2025 3:29 PM EDT) Anatomical Region Laterality Modality Lower Extremities, Ankle Right Radiogr aphic Imaging 09/03/2025 4:14 PM EDT Impressions 09/03/2025 4:15 PM EDT Normal study. -------- FINAL REPORT -------- Dictated By: Laila No Dictated Date: 09/03/2025 16:14 ET Assigned Physician: Laila No Reviewed and Electronically Signed By: Laila No Signed Date: 09/03/2025 16:15 ET Workstation ID: [id number] Transcribed By: Self Edit Transcribed Date: 09/03/2025 [...] Signed Date: 09/03/2025 16:15 ET Workstation ID: [id number] Transcribed By: Self Edit Transcribed Date: 09/03/2025 16:14 ET Tamara HANSEN IMG XR PROCEDURES Final Resul t documented in this encounter Visit Diagnoses Diagnosis Fall, initial encounter documented in this encounter Additional Health Concerns Assessment Noted Time PHQ-9 Depression Total Score: 11 06/01/2 025 2:03 AM EDT documented as of this encounter Care Teams Strategic Intelligence Officer Relationship Specialty Start Date End Date Piyush Knapp MD [address] [place] [phone] PCP - General 09/08/23 documented as of this encounter
--- OUTSIDE RECORDS SUMMARY | 2025-09-03 15:17 | XMS_ITS | Encounter Summary ---
Author Organization [place] [address] Care Team Providers Care Grinder Name Role Phone Piyush Knapp MD Primary Care Pr ovider Encounter Details Date Type Department Care Team (Latest Contact Info) Description 09/03/2025 3:17 PM EDT - 09/03/2025 11:59 PM EDT Hospital Encounter XRAY - [facility] [address] [place] [address] Fall, initial encounter Discharge Disposition: Home or [...] for your loved ones. For example, child development instructor or elderly care for an older adult? [...] 8:30 AM EST Office Visit Adult Medicine [address] [phone] Piyush Knapp MD [address] [place] [address] documented as of this encounter Procedures Procedure Name Priority Date/Time Associated Diagnosis Comments XR KNEE 4+ VIEWS RIGHT Routine 09/03/2025 3:28 PM EDT Fall, initial encounter documented in this encounter Results * XR Knee 4+ Views Right (09/03/2025 3:28 PM EDT) Anatomical Region Laterality Modality Lower Extremities, Knee Right Radiogra [facility] Imaging 09/03/2025 4:11 PM EDT Impressions 09/03/2025 4:13 PM EDT Mild osteoarthritis. No acute findings. -------- FINAL REPORT -------- Dictated By: Laila No Dictated Date: 09/03/2025 16:11 ET Assigned Physician: Laila No Reviewed and Electronically Signed By: Laila No Signed Date: 09/03/2025 16:13 ET Workstation ID: [id number] Transcribed By: Self Edit Transcribed Date: 09/03/2025 [...] Signed Date: 09/03/2025 16:13 ET Workstation ID: [id number] Transcribed By: Self Edit Transcribed Date: 09/03/2025 16:11 ET us Tamara HANSEN IMG XR PROCEDURES Final Resul t documented in this encounter Visit Diagnoses Diagnosis Fall, initial encounter documented in this encounter Additional Health Concerns Assessment Noted Time PHQ-9 Depression Total Score: 11 07/12/2 025 2:03 AM EDT documented as of this encounter Care Teams Grinder Relationship Specialty Start Date End Date Piyush Knapp MD [address] [place] [phone] PCP - General 09/08/23 documented as of this encounter
--- OUTSIDE RECORDS SUMMARY | 2025-09-06 10:36 | XMS_ITS | Encounter Summary ---
Author Organization [employer] Address [address] [place] [address] Care Team Providers Care Drafter Geological Name Role Phone Piyush Knapp MD Primary Care Pr ovider Encounter Details Date Type Department Care Team (Late st Contact Info) Description 09/03/2025 Results Follow-Up Adult Medicine [address] [phone] Tamara Torrez PA [address] [place] [address] Social History Tobacco Use Types Packs/Day Years [...] your loved ones. For example, child development professor or elderly care for an older adult? [...] on file documented as of this encounter Plan of Treatment Upcoming Encounters Date Type Department Care Team ([facility] st Contact Info) Description 09/23/2025 8:30 AM EST Office Visit Adult Medicine [address] [phone] Piyush Knappe, MD [address] [place] [address] Scheduled Orders Name Type Priority Associated Diagnoses Orde r Schedule Comprehensive metabolic panel Lab Routine LFT elevation Expected: 10/07/2025, Expires: 12/07/2025 documented as of this encounter Visit Diagnoses Diagnosis LFT elevation- Primary documented in this encounter Additional Health Concerns Assessment Noted Time PHQ-9 Depression Total Score: 025 2:03 AM EDT documented as of this encounter Care Teams Drafter Geological Relationship Specialty Start Date End Date Piyush Knapp MD [address] [place] [address] PCP - General 09/08/23 documented as of this encounter
--- OUTSIDE RECORDS SUMMARY | 2025-09-06 10:36 | XMS_ITS | Clinical Summary ---
Author Organization [address] Address [address] [place] [address] Phone Care Team Providers Care Nurses' Aide Name Role Phone Piyush Knapp MD Primary Care Pr ovider Allergies No known active allergies Medications clonazePAM (KlonoPIN) 1 mg tablet Take 1 mg by mouth 2 times daily as needed. Active DULoxetine (CYMBALTA) [address] capsule Take 60 mg by mouth 2 times daily. 60 mg BID Active SUMAtriptan (IMITREX) 100 mg tablet 01/11/20 21 Active azelastine (OPTIVAR) 0.05 % ophthalmic solution Administer 1 drop into both eyes 2 (two) times a day. 18 mL 11/30/19 25 Active omeprazole (PriLOSEC) [address] capsuleIndication s:Gastroesophagea l reflux disease without esophagitis Take 1 capsule (40 mg total) by mouth 1 (one) time each day. Do not crush or chew. 90 capsule 1 05/16/20 25 Active eszopiclone (LUNESTA) 2 mg tablet Take 1 tablet (2 mg total) by mouth at bedtime. Max Daily Amount: 2 mg 05/10/20 25 Active triamcinolone (KENALOG) 0.1 % ointmentIndicatio ns:Irritant contact dermatitis due to urinary incontinence,Derm atitis Apply small amounts to affected area every 12 hours. 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 270 each 05/16/20 25 2024 Discontinued Active Problems Problem Noted Date Diagnosed Date History of epilepsy 09/03/2025 Chronic midline low [...] & Plan (05/16/2025 5:17 PM EDT): Continue [facility] follow-up. Continue duloxetine twice daily and [...] WHI. I discussed risks including cardiovascular disease- MO, DVT, stroke. I discussed small increased risk [...] new medication and thus does not have buttermilk drier operator safety data. However, the literature I [...] chair to prevent falls Will send to DME nurse Orders: gabapentin (NEURONTIN) 300 mg capsule; [...] duloxetine as prescribed by her psychiatrist at [facility] She will benefit from a shower tub [...] not improved, she will return. I reviewed [facility] guidelines with her and provided her a copy. Urinary incontinence 04/15/2016 025 Generalized anxiety disorder 12/31/2013 05/16/2025 Major depression 12/31/2013 05/16/2025 Encounters Date Type Department Care Team Description 09/03/2025 3:17 PM EDT - 09/03/2025 11:59 PM EDT Hospital Encounter [address] [phone] Fall, initial encounter Discharge Disposition: Home or Self Care 09/03/2025 3:17 PM EDT - 09/03/2025 11:59 PM EDT Hospital Encounter [address] [phone] Fall, initial encounter Discharge Disposition: Home or Self Care 09/03/2025 3:15 PM EDT - 09/03/2025 11:59 PM EDT Hospital Encounter [address] [phone] Fall, initial encounter Discharge Disposition: Home or Self Care 09/03/2025 2:30 PM EDT Office Visit [address] [phone] Tamara Torrez PA Syncope and collapse (Primary Dx); Fall, initial encounter; Other chest pain; Acute pain of right knee; Acute right ankle pain; Left leg pain; History of epilepsy; Elevated BP without diagnosis of hypertension 09/03/2025 Results Follow-Up Adult [address] [phone] Tamara Torrez PA 09/03/2025 Nurse Triage [address] [phone] Piyush Knapp MD 06/26/2025 Telephone Adult Medicine [address] [phone] Piyush Knapp MD 06/07/2025 Telephone Obstetrics and Gynecology [address] [phone] Giuliana Hoover CNM from Last 3 Months Immunizations Immunization Administration Dates Next Due Influenza Quadravalent, 0.5m [...] TUBAL LIGATION UPPER GASTROINTESTINAL ENDOSCOPY 08/29/2008 PROCEDURE: TX UPPER GI ENDOSCOPY PERFORMED; COMMENT: gastric bx: Reactive gastropathy with eosinophils, no H. pylori. COLONOSCOPY 08/20/2010 PROCEDURE: HISTORICAL COLONOSCOPY; COMMENT: 4 mm sigmoid colon polyp: Tubular adenoma. OTHER SURGICAL HISTORY 10/01 PROCEDURE: MAMMOGRAM COLONOSCOPY 2014 PROCEDURE: HISTORICAL COLONOSCOPY; COMMENT: [facility]; no polyps OTHER SURGICAL HISTORY PROCEDURE: SACRAL NERVE STIM CONCRETE LABORER; COMMENT: neuromodulator BREAST BIOPSY Left PROCEDURE: BX BREAST; PERC NEEDLE CORE W/IMAG GUID Medical History Medical History Date Comments Depressive disorder, not els ewhere classified DX:Depressive disorder, not elsewhere classified Scoliosis 12/07/2007 DX:Scoliosis Depression 12/07/2007 DX:Depression; C OMMENT: dr ambreen fonutain Insomnia 12/07/2007 DX:Insomnia Ureteral reflux 12/07/2007 DX:Ureteral [...] V24, CMS/HCC V28) DX:Proliferative diabetic r etinopathy ([facility]) Clinically significant diabe tic macular edema (CMS/HCC [...] care for your loved ones. For example, childcare attendant or elderly care for an older adult? [...] Mass Index 40.71 09/03/2025 2:12 PM EDT Plan of Treatment Upcoming Encounters Date Type Department Care Team (Late st Contact Info) Description 09/23/2025 8:30 AM EST Office Visit Adult Medicine [address] [phone] Piyush Knapp MD [address] [place] [address] Health Maintenance Due Date Last Done Comments Hepatitis B Vaccines (1 of 3 - 19+ 3-dose series) 1988 Pneumococcal Vaccine: 50+ Years (1 of 1 - PCV) 2019 RSV Immunization Adult Patients (1 - Risk 50-74 years 1-dose series) 2019 Zoster Vaccines (1 of 2) 2019 COVID-19 Vaccine (3 - 2024- season) 2025 08/28/2021, 08/04/2021 Influenza Vaccine (#1) 2025 7, 12/15/2016, 11/03/2016, Additional history exists Social Influencers of Health Screening 11/13/2025 11/13/2024 DTaP,Tdap,and Td Vaccines (3 - Td or Tdap) 12/23/2025 12/23/2015, 12/07/2007 Colorectal Cancer Screening: Colonoscopy 07/08/2026 07/08/2021 Breast Cancer Screening 04/09/2027 04/09/20 25, 02/15/2024, 09/29/2022, Additional history exists Cervical Cancer [...] 09/03/2025 3:30 PM EDT Syncope and collapse XR ANKLE 3+ VIEWS RIGHT Routine 09/03/2025 3:29 PM EDT Fall, initial encounter XR KNEE 4+ VIEWS RIGHT Routine 3:28 PM EDT Fall, initial encounter XR TIBIA FIBULA 2 VIEWS LEFT Routine 09/03/2025 3:28 PM EDT Fall, initial encounter CBC WITH AUTO DIFFERENTIAL Routine 09/03/2025 3:08 PM EDT Syncope and collapse COMPREHENSIVE METABOLIC PANEL Routine 09/03/2025 3:08 PM EDT Syncope and collapse CBC AND DIFFERENTIAL Routine 09/03/2025 3:08 PM EDT Syncope and collapse THYROID STIMULATING HORMONE WITH REFLEX TO FREE T4 AND FREE T3 Routine 09/03/2025 3:08 PM EDT Syncope and collapse MAGNESIUM Routine 09/03/2025 3:08 PM EDT Syncope and collapse LIPID PANEL WITH REFLEX TO DIRECT LDL Routine 05/16/2025 10:01 AM EDT Lipid screening MG MAMMO DIGITAL SCREENING W MAXI BILAT Routine 04/09/2025 9:52 AM EDT Encounter for screening mammogram for breast cancer DEPRESSION SCREENING Routine 05/14/2024 HPV Routine 08/16/2023 COLONOSCOPY Routine 07/08/2021 HEPATITIS C SCREENING Routine 08/11/2018 HIV SCREENING Routine 02/01/2006 from Last 3 Months or Most Recently Relevant to Health Maintenance Results * ECG 12 lead Tracing Only [...] Signed Date: 09/03/2025 16:15 ET Workstation ID: [id number] Transcribed By: Self Edit Transcribed Date: 09/03/2025 [...] Signed Date: 09/03/2025 16:15 ET Workstation ID: [id number] Transcribed By: Self Edit Transcribed Date: 09/03/2025 16:14 ET us Tamara HANSEN IMG XR PROCEDURES Final Resul t * XR Knee 4+ Views Right (09/03/2025 3:28 PM EDT) Anatomical Region Laterality Modality Lower Extremities, Knee Right Radi[facility] 09/03/2025 4:11 PM EDT Impressions 09/03/2025 4:13 PM EDT Mild osteoarthritis. No acute findings. -------- FINAL REPORT -------- Dictated By: Laila No Dictated Date: 09/03/2025 16:11 ET Assigned Physician: Laila No Reviewed and Electronically Signed By: Laila No Signed Date: 09/03/2025 16:13 ET Workstation ID: [id number] Transcribed By: Self Edit Transcribed Date: 09/03/2025 [...] Signed Date: 09/03/2025 16:13 ET Workstation ID: [id number] Transcribed By: Self Edit Transcribed Date: 09/03/2025 [...] Signed Date: 09/03/2025 16:14 ET Workstation ID: [id number] Transcribed By: Self Edit Transcribed Date: 09/03/2025 [...] Signed Date: 09/03/2025 16:14 ET Workstation ID: [id number] Transcribed By: Self Edit Transcribed Date: 09/03/2025 16:13 ET us Tamara HANSEN IMG XR PROCEDURES Final Resul t * Thyroid stimulating hormone with reflex to free t4 and free t3 (09/03/2025 3:08 PM EDT) Pathologist [facility] [place] TSH 2.02 0.40 - 4.00 mcIU/mL LAB CHEMISTRY METHOD 09/03/2025 7:36 PM EDT [facility] Blood Venous blood specimen / Unknown Venipuncture / Unknown 09/03/2025 3:08 PM EDT 09/03/2025 3:08 PM EDT us Tamara HANSEN LAB BLOOD ORDERABLES Final Re sult [facility] [address] [place] [address], [place] [phone] * (ABNORMAL) CBC auto differential (09/03/2025 3:08 PM EDT) Pathologist [facility] [place] WBC 7.5 4.8 - 10.8 K/mcL LAB HEMETOLOGY METHOD 09/03/2025 6:[facility] RBC 4.70 3.80 - 4.80 M/mcL LAB HEMETOLOGY METHOD 09/03/2025 6:27 PM [facility] Hemoglobin 13.4 11.5 - 16.0 g/dL LAB HEMETOLOGY METHOD 09/03/2025 6:27 PM [facility] Hematocrit 42.6 35.0 - 47.0 % LAB HEMETOLOGY METHOD 09/03/2025 6:27 PM [facility] MCV 90.6 79.0 - 98.0 FL LAB HEMETOLOGY METHOD 09/03/2025 6:27 PM [facility] MCH 28.5 27.0 - 32.0 pcg LAB HEMETOLOGY METHOD 09/03/2025 6:27 PM [facility] MCHC 31.5(L) 32.0 - 37.0 g/dL LAB HEMETOLOGY METHOD 09/03/2025 6:27 PM [facility] RDW 14.1 11.0 - 15.0 % LAB HEMETOLOGY METHOD 09/03/2025 6:27 PM [facility] Platelets 392 130 - 400 K/mcL LAB HEMETOLOGY METHOD 09/03/2025 6:27 PM [facility] MPV 11.4(H) 7.0 - 11.0 FL LAB HEMETOLOGY METHOD 09/03/2025 6:27 PM [facility] NRBC 0.0 <1.0 % LAB HEMETOLOGY METHOD 09/03/2025 6:27 PM [facility] NRBC Absolute 0.00 <0.10 K/mcL LAB HEMETOLOGY METHOD 09/03/2025 6:27 PM [facility] Neutrophils Relative 59.7 % LAB HEMETOLOGY METHOD 09/03/2025 6:27 PM [facility] Lymphocytes Relative 30.9 % LAB HEMETOLOGY METHOD 09/03/2025 6:27 PM EDT [facility] Monocytes Relative 6.3 % LAB HEMETOLOGY METHOD 09/03/2025 6:27 PM EDT [facility] Eosinophils Relative 2.4 % LAB HEMETOLOGY METHOD 09/03/2025 6:27 PM EDT [facility] Basophils Relative 0.3 % LAB HEMETOLOGY METHOD 09/03/2025 6:27 PM EDT [facility] Immature Granulocytes Relative 0.4 % LAB HEMETOLOGY METHOD 09/03/2025 6:27 PM EDT [facility] Neutrophils Absolute 4.47 1.50 - 7.00 K/mcL LAB HEMETOLOGY METHOD 09/03/2025 6:[facility] Lymphocytes Absolute 2.31 1.00 - 5.00 K/mcL LAB HEMETOLOGY METHOD 09/03/2025 6:27 PM EDT [facility] Monocytes Absolute 0.47 0.20 - 1.00 K/mcL LAB HEMETOLOGY METHOD 09/03/2025 6:27 PM EDT [facility] Eosinophils Absolute 0.18 0.00 - 0.50 K/mcL LAB HEMETOLOGY METHOD 09/03/2025 6:27 PM [facility] Basophils Absolute 0.02 0.00 - 0.20 K/mcL LAB HEMETOLOGY METHOD 09/03/2025 6:27 PM T [facility] Immature Granulocytes Absolute 0.03 0.00 - 0.03 K/mcL LAB HEMETOLOGY METHOD 09/03/2025 6:27 PM [facility] Blood Venous blood specimen / Unknown Venipuncture / Unknown 09/03/2025 3:08 PM EDT 09/03/2025 3:08 PM EDT us Tamara HANSEN LAB BLOOD ORDERABLES Final Re sult [facility] [address] [place] [address], [place] [phone] * Magnesium (09/03/2025 3:08 PM EDT) Pathologist [facility] [place] Magnesium 2.3 1.9 - 2.6 mg/dL LAB CHEMISTRY METHOD 09/03/2025 7:07 PM EDT [facility] Blood Venous blood specimen / Unknown Venipuncture / Unknown 09/03/2025 3:08 PM EDT 09/03/2025 3:08 PM EDT Tamara HANSEN LAB BLOOD ORDERABLES Final Re sult Performing Organization Address City/[facility]/ZIP Co de Phone Number [facility] [address] [place] [address], [place] [phone] * (ABNORMAL) Comprehensive metabolic panel (09/03/2025 3:08 PM EDT) Pathologist [facility] [place] Sodium 139 133 - 145 mmol/L LAB CHEMISTRY METHOD 09/03/2025 7:17 PM [facility] Potassium 4.3 3.5 - 5.5 mmol/L LAB CHEMISTRY METHOD 09/03/2025 7:17 PM [facility] Chloride 106 96 - 110 mmol/L LAB CHEMISTRY METHOD 09/03/2025 7:17 PM [facility] CO2 30 21 - 32 mmol/L LAB CHEMISTRY METHOD 09/03/2025 7:17 PM [facility] Anion Gap 3 3 - 11 LAB CHEMISTRY METHOD 09/03/2025 7:17 PM [facility] Glucose 98 70 - 100 mg/dL LAB CHEMISTRY METHOD 09/03/2025 7:17 PM [facility] BUN 12 5 - 25 mg/dL LAB CHEMISTRY METHOD 09/03/2025 7:17 PM [facility] Creatinine 0.93 0.50 - 1.10 mg/dL LAB CHEMISTRY METHOD 09/03/2025 7:17 PM [facility] eGFR 73 >=60 mL/min/1. 73m2 LAB CHEMISTRY METHOD 09/03/2025 7:17 PM [facility] Comment:Calculation based on the Chronic Kidney Disease Epidemiology Collaboration (CKD-EPI) equation refit without adjustment for race. BUN/Creatinine Ratio 12.9 LAB CHEMISTRY METHOD 09/03/2025 7:17 PM [facility] Calcium 9.7 8.5 - 10.5 mg/dL LAB CHEMISTRY METHOD 09/03/2025 7:17 PM [facility] AST (SGOT) 40 10 - 42 unit/L LAB CHEMISTRY METHOD 09/03/2025 7:17 PM [facility] ALT (SGPT) 65(H) 10 - 60 unit/L LAB CHEMISTRY METHOD 09/03/2025 7:17 PM [facility] Alkaline Phosphatase 133(H) 42 - 121 unit/L LAB CHEMISTRY METHOD 09/03/2025 7:17 PM [facility] Total Protein 7.0 6.0 - 8.0 g/dL LAB CHEMISTRY METHOD 09/03/2025 7:17 PM [facility] Albumin 3.8 3.2 - 5.0 g/dL LAB CHEMISTRY METHOD 09/03/2025 7:17 PM [facility] Total Bilirubin 0.4 0.0 - 1.4 mg/dL LAB CHEMISTRY METHOD 09/03/2025 7:17 PM [facility] Blood Venous blood specimen / Unknown Venipuncture / Unknown 09/03/2025 3:08 PM EDT 09/03/2025 3:08 PM EDT us Tamara HANSEN LAB BLOOD ORDERABLES Final Re sult [facility] [address] [place] [address], [place] [phone] * Lipid panel with reflex to direct LDL (05/16/2025 10:01 AM EDT) Cholesterol 167 0 - 200 mg/dL LAB CHEMISTRY METHOD 05/16/2025 2:15 PM EDT [facility] Triglycerides 67 0 - 150 mg/dL LAB CHEMISTRY METHOD 05/16/2025 2:15 PM EDT [facility] HDL 75 >=40 mg/dL LAB CHEMISTRY METHOD 05/16/2025 2:15 PM EDT [facility] LDL Calculated 79 0 - 100 mg/dL LAB CHEMISTRY METHOD 05/16/2025 2:15 PM EDT [facility] VLDL Cholesterol Clint 13.4 mg/dL LAB CHEMISTRY METHOD 05/16/2025 2:15 PM EDT [facility] Non HDL Chol. (LDL+VLDL) 92 <145 mg/dL LAB CHEMISTRY METHOD 05/16/2025 2:15 PM EDT [facility] Chol/HDL Ratio 2.2 0.0 - 4.4 LAB CHEMISTRY METHOD 05/16/2025 2:15 PM EDT [facility] Blood Venous blood specimen / Unknown Venipuncture / Unknown 05/16/2025 10:01 AM EDT 05/16/2025 10:01 AM EDT Piyush Knapp MD LAB BLOOD ORDERA BLES Final Result [facility] [address] [place] [address], [place] [phone] * MG Mammo Digital Screening w Maxi bilat (04/09/2025 9:52 AM EDT) Anatomical Region Laterality Modality Breast Bilateral Mammography 04/09/2025 5:27 PM EDT Impressions 04/09/2025 5:29 PM EDT No mammographic evidence of malignancy. BREAST DENSITY: B - There are scattered areas of fibroglandular density. BI-RADS CATEGORY: 1 - NEGATIVE RECOMMENDATION: Screening bilateral mammogram is recommended in 1 year. MAMMO LOCATION: [facility], [address] [place] [address], [id number], . -------- FINAL REPORT -------- Dictated By: Barbara Kilpatrick Dictated Date: 04/09/2025 17:27 ET Assigned Physician: Barbara Kilpatrick Reviewed and Electronically Signed By: Barbara Kilpatrick Signed Date: 04/09/2025 17:29 ET Workstation ID: [id number] Transcribed By: Self Edit Transcribed Date: 04/09/2025 [...] is recommended in 1 year. MAMMO LOCATION: [facility], [address] [place] [address], [phone], . -------- FINAL REPORT -------- Dictated By: Barbara Kilpatrick Dictated Date: 04/09/2025 17:27 ET Assigned Physician: Barbara Kilpatrick Reviewed and Electronically Signed By: Barbara Kilpatrick Signed Date: 04/09/2025 17:29 ET Workstation ID: [id number] Transcribed By: Self Edit Transcribed Date: 04/09/2025 17:27 ET Piyush Knapp MD IM BI PROCEDURE S Final Result * Depression Screening (05/14/2024) [facility] Depression Screening Abstracted [facility] Provider HEALTH MAINTENANCE Final Result * Cervical Cancer Screening: HPV (08/16/2023) [facility] Cervical Cancer Screening: HPV Abstracted ,negative [facility] Provider HEALTH MAINTENANCE Final Result * Colonoscopy (07/08/2021) [facility] Colonoscopy No interpreta tion,abstr acted Anatomical Region Laterality Modality Other [facility] Provider HEALTH MAINTENANCE Final Result * Hepatitis C Screening (08/11/2018) [facility] Hepatitis C Screening Abstracted [facility] Provider HEALTH MAINTENANCE Final Result * HIV Screening (02/01/2006) [facility] HIV Screening Abstracted [facility] Provider HEALTH MAINTENANCE Final Result from Last 3 Months or Most Recently Relevant to Health Maintenance Insurance [facility] Care Teams Nurses' Aide Relationship Specialty Start Date End Date Piyush Knapp MD [address] [place] [phone] PCP - General 09/08/23
--- OUTSIDE RECORDS SUMMARY | 2025-09-06 10:36 | XMS_ITS | Clinical Summary ---
Author Organization [facility] Address [address] [place], [place] [id number] Phone Care Team Providers Care Other Sales Support Worker Name Role Phone MattTiki Garza Trudy DO [...] 2019 INFLUENZA VACCINE (#1) 2025 COVID-19 VACCINE ( - 2024-2 6 season) 2025 RSV VACCINE (1 - 1-dose 75+ series) 2044 HEPATITIS A VACCINES Aged Out No long [...] Medical Devices Not on file Care Teams Other Sales Support Worker Relationship Specialty Start Date End Date Tiki Merchant DO [address] [place] [address] PCP - General 09/06/17 Additional Source Comments The information contained in this document represents components of the legal health record. It is not the complete legal health record.[facility]
--- OUTSIDE RECORDS SUMMARY | 2025-09-06 10:36 | XMS_ITS | Encounter Summary ---
Author Organization [facility] Address [address] [place] [address] Care Team Providers Care Wig Stylist Name Role Phone Piyush Knapp MD Primary Care Pr ovider Reason for Visit * Reason Onset Date Comments Knee Pain 09/03/2025 Encounter Details Date Type Department Care Team (Late st Contact Info) Description 09/03/2025 Nurse Triage Adult Medicine [address] [phone] Piyush Knapp MD [address] [place] [address] Social History Tobacco Use Types Packs/Day Years [...] for your loved ones. For example, child health associate or elderly care for an older adult? [...] on file documented as of this encounter Progress Notes * Carolina Torres RN - 09/03/2025 12:09 PM EDT An appointment was made for her to be seen in the office today at 2:30 pm with Tamara Torrez and she is in agreement with this plan. Reason for Disposition [1] MODERATE pain (e.g., interferes with normal activities, limping) AND [2] present > 3 days Answer Assessment - Initial Assessment Questions 1. LOCATION and RADIATION: Where is the pain located? Right knee pain after she fell on 09/01/25. She denies hitting her head or losing consciousness. She was putting ice in a cooler into the trunk of her car and she fell. 2. QUALITY: What does the pain feel like? (e.g., sharp, dull, aching, burning) She describes the pain as burning. 3. SEVERITY: How bad is the pain? What does it keep you from doing? (Scale 1-10; or mild, moderate, severe) She rates the pain as 7/10 4. ONSET: When did the pain start? Does it come and go, or is it there all the time? 09/01/25 5. RECURRENT: Have you had this pain before? If Yes, ask: When, and what happened then? No 6. SETTING: Has there been any recent work, exercise or other activity that involved that part of the body? She fell 7. AGGRAVATING FACTORS: What makes the knee pain worse? (e.g., walking, climbing stairs, running) Walking 8. ASSOCIATED SYMPTOMS: Is there any swelling or redness of the knee? She reports swelling and redness 9. OTHER SYMPTOMS: Do you have any other symptoms? (e.g., calf pain, chest pain, difficulty breathing, fever) No 10. : Is there any chance you are ? When was your last menstrual period? No. Pt is postmenopausal Protocols used: Knee Pain-A-AH * Yoli Francisco - 09/03/2025 10:55 AM EDT Patient call requires triage: Symptoms patient is presenting: patient states she took a fall outside and landed on her right knee- having a lot of pain How long has patient had these symptoms?: 3 day ago For ALL patients calling to schedule any appointment (routine, sick visit, follow up, consult, etc.) in the outpatient setting please ask the following questions: Do you have fever of higher than 101, sore throat with difficulty swallowing or severe shortness ofbreath? no If YES to any of these above symptoms, send a message to triage and do not book. Red dot. If no, an audio or video visit should be booked. Have you had close contact with someone with Coronavirus in the last 14 days? no Have you traveled abroad? no Have you traveled recently to another state outside of [place], [place], [place], [place]? no o If yes, did you quarantine for 14 days or have a negative covid test? no If yes to any of the above, patient is not to be scheduled in office until after 14 day quarantine or negative covid test. If pain or injury related was it due to an accident at work or from a motor vehicle accident? If yes, date of accident/Injury: No If yes, gather 3rd democrat insurance information Third Republican Information: not applicable PCP: Piyush Knapp MD Payor: [employer] PLAN / Plan: [employer] MEDICAID / Product Type: *No Product type* / documented in this encounter Plan of Treatment Upcoming Encounters Date Type Department Care Team (Late st Contact Info) Description 09/23/2025 8:30 AM EST Office Visit Adult Medicine [address] [phone] Piyush Knapp MD [address] [place] [address] documented as of this encounter Visit Diagnoses Not on filedocumented in this encounter Additional Health Concerns Assessment Noted Time PHQ-9 Depression Total Score: 025 2:03 AM EDT documented as of this encounter Care Teams Wig Stylist Relationship Specialty Start Date End Date Piyush Knapp MD [address] [place] [address] PCP - General 10/19/23 documented as of this encounter
--- NOTE | 2025-09-06 11:10 | A.OFFVIS_ITS ---
VS Expanded 09/06/25 11:22 Height 5 ft 2.5 in Weight 217 lb 8 oz BMI 39.1 Body Fat % 46.6 Body Fat Mass 101.4 Fat Free Mass 116.2 Visceral Fat Rating 14 Body Water % 37.9 Body Water Mass 82.4 Basal Metabolic Rate/Score 1,636 Intake Visit Reasons: TV [employer] MWL BMI 39.2 Allergies No Known Allergies Allergy (Verified 09/06/25 11:11) Medication List - Last Reconciled 09/06/25 by Enrique Valiente MD azelastine 0.05% 1 drp ophthalmic (eye) BID cholecalciferol (vitamin D3) 50 mcg PO DAILY clonazepam (Klonopin) 1 mg PO BID PRN duloxetine (Cymbalta) 60 mg PO BID eszopiclone (Lunesta) 2 mg PO BEDTIME gabapentin 300 mg PO TID ibuprofen 800 mg PO Q8H omeprazole 40 mg PO DAILY sumatriptan succinate (Imitrex) 100 mg orally once a day as needed; 30 days triamcinolone acetonide 0.1% 1 appl topical DAILY HPI HPI TV [employer] MWL BMI 39.2: Details: Start time: 11.03am, End time: 11.38am ?I spent 30 minutes speaking with the patient on the phone plus an additional 5 minutes reviewing and updating records for a total of 35 minutes HPI Comments Details: Previous weight loss efforts: self diet and exercise Wakes up: 2am, Sleeps: 10.30pm Breakfast: 7am (banana, oatmeal) Lunch: skips Dinner: 6pm (turkey wings) Snacks: 5 times (between breakfast and dinner: nuts, bananas, oranges, grapes), night snacking Exercise: none Beverages: Coffee (1 cup/d, black), Tea: none, Soda: none, Juice: Green, ETOH: none PFSH Medical History (Updated 09/06/25 @ 11:35 by Enrique Valiente MD) Depression Anxiety Insomnia GERD (gastroesophageal reflux disease) DJD (degenerative joint disease) Fibromyalgia Sleep apnea treated with continuous positive airway pressure (CPAP) BMI 39.0-39.9,adult Obesity Surgical History (Updated 08/05/25 @ 08:13 by Gerri De La Torre CMA) Hx of tubal ligation Hx of colonoscopy Hx of bladder endoscopy Hx of cholecystectomy Hx of tonsillectomy Family History (Updated 08/05/25 @ 08:14 by Gerri De La Torre CMA) Mother Hypertension Father No problems noted. Daughter Diabetes Social History (Updated 08/05/25 @ 08:16 by Gerri De La Torre CMA) Alcohol intake: never Patient Tobacco Use Status: Never used Tobacco Telehealth Telehealth Telehealth Platform: Telephone Location of provider rendering services: practice address Location of patient: address on file Patient Identification confirmed using: Name, : Yes Telehealth method: voice only Patient verbally consented to treatment: Yes Patient verbally consented to billing insurance company: Yes Patient informed of any privacy concerns related to visit: Yes Minutes spent on Phone/Video with Pt.: 35 Assessment & Plan Assessment & Plan (1) Obesity: Code(s): E66.9 - Obesity, unspecified Category: Medical Qualifiers: Obesity type: due to excess calories Obesity classification: adult class 2 (BMI 35 - 39.9) Serious obesity comorbidity presence: with serious comorbidity Body mass index: BMI 39.0-39.9 Qualified Code(s): E66.812 - Obesity, class 2; Z68.39 - Body mass index [BMI] 39.0-39.9, adult Plan: 1. As we discussed, based on your present BMI you are approximately 95lbs overweight. In my opinion, for any weight loss strategy to be successful should have a high probability to help you lose at least 80lbs out of 95lbs of the extra weight you carry. We discussed in detail the available therapeutic options: 1) our lifestyle intervention program that has an average weight loss of 10% in 3 months.?Some patients continue it for longer and have lost over 50lbs but this is not common. Our lifestyle program can be provided by me or by using our software morelia, the [employer] morelia. I will provide you with a link to use the morelia if you choose to do so. We use protein shakes and protein bars to replace some of the meals of the day and cover your appetite better. We will decide together the exact combination. 2) Weight loss medications: these can be used in conjunction with our lifestyle program or you may choose to use them without following a lifestyle program from my program but your own. As we discussed, your insurance requires you to use a weight loss pill called Phentermine before they approve the injections. Also your insurance anounced that as of November 21 they will not cover any weight loss medications. We also discussed that you can self pay for the first 3 months and the cost is $249 for the first month and $499 for any other month thereafter. These payments go to the drug company directly and not to us. 3) We also discussed about the lap sleeve gastrectomy. In my opinion this is the best option to solve your problem based on your situation and should be used in conjunction with the two previous options. A good strategy to make this decision to proceed with surgery, is to set some goals with the lifestyle interv ention and medication options: If you don't lose at least 10lbs the first 6 weeks after starting the program or at least 10% in 3 months. ?I emphasized the importance of close follow-up, adherence to instructions and good communication. The surgery does not replace the need to change your lifestlyle which is the cause of the obesity problem. The surgery provides the motivation to try again to change your lifestyle, it reduces the appetite and make the transition to a better lifestyle easier and doubles the amount of weight you would lose compared to doing the lifestyle change without the surg allegra. You will need to be on a liquid diet with protein shakes for 2 weeks before surgery to maximize weight loss and boost your nutritional status to recover better from surgery and also for the first two weeks after surgery to let the stomach heal before we introduce other foods. After the first 2 weeks we will introduce protein bars and soft foods like scrambled eggs, cottage cheese and yogurt and after the 6th week will introduce meat, fish and cooked vegetables in small amounts. Over time you should be able to eat everything in small amounts. Side effects like nausea, vomiting, heartburn or abdominal pain are not common in the practice unless you are not following in the practice. This operation requires lifetime commitment to following in our practice and communication with me. You will much less weight and experience side effects if you don?t communicate or not following in the practice. Complications are rare and in our practice is about 1/10 of the national average.
[2025-09-06 11:22] VITALS: BMI 39.1
== END 2025-09-06 11:39 | disposition home or self-care (01) ==
LOC: HO.HBS 09:29
PROVIDERS: PCP Family Medicine; Visit Provider Surgery
DX: E66.812 Obesity, class 2 (principal); Z68.39 Body mass index [BMI] 39.0-39.9, adult
CPT/HCPCS: 99203